=== PATIENT | female | born 1970 | race Caucasian/White ===

== ENCOUNTER → 2017-11-11 | Outpatient (CLI) | payer BC ==
--- NOTE | 2017-11-14 08:33 | US ---
EXAM DESCRIPTION: Thyroid CLINICAL HISTORY: HYPERTHYROIDISM COMPARISON: None. TECHNIQUE: Routine sonographic imaging of the thyroid gland. FINDINGS: The right thyroid lobe measures 5.3 x 1.3 x 1.7 cm. The left thyroid lobe measures 5.2 x 1.3 x 1.6 cm. The thyroid isthmus measures 0.4 cm in thickness. Several heterogeneous nodules are demonstrated in both thyroid lobes. In the right lobe, the largest nodule is in the lower pole measuring 0.5 cm and demonstrates isoechoic to hypoechoic echogenicity. In the left lobe, the largest nodule measures 1.0 x 0.6 x 0.8 cm in the lower pole and demonstrates heterogeneous hypoechoic and isoechoic echogenicity. IMPRESSION: Multiple heterogeneous solid thyroid nodules measuring up to 1.0 cm in the left lobe. Follow-up ultrasound in 12 months recommended to confirm stability. Electronically signed by: Hayden Fox MD 11/14/2017 8:32 AM [facility]
== END ==
LOC: US 13:53
PROVIDERS: ATTEND Nurse Practitioner Family
DX: E05.90 Thyrotoxicosis, unspecified without thyrotoxic crisis or storm (principal)